=== PATIENT | female | born 1970 | race Caucasian/White ===

== ENCOUNTER 2022-12-30 08:22 | Day surgery (SDC) | payer BC ==
[~2022-12-30] VITALS: Ht 167.6 cm; Wt 92.9 kg
[~2022-12-30 08:22] MED LIST: MIDAZolam 1 MG/ML 5ML VIAL ONE; fentaNYL/PF 50MCG/1 ML 2ML syringe ONE
[2022-12-30] MEDS ORDERED: UBID300C3 PO (09:36)
[2022-12-30] MEDS ORDERED: NO HOME MEDS (09:53)
[2022-12-30 10:30] VITALS: BP 131/84
[2022-12-30 10:40] VITALS: BP 102/63
[2022-12-30 10:50] VITALS: BP 103/64
[2022-12-30 10:59] VITALS: BP 131/84
[2022-12-30 11:00] VITALS: BP 103/64
== END 2022-12-30 11:15 | disposition home or self-care (01) ==
LOC: GI LAB 08:22
PROVIDERS: ATTEND Specialist
DX: Z12.11 Encounter for screening for malignant neoplasm of colon (principal); K63.5 Polyp of colon; K57.30 Diverticulosis of large intestine without perforation or abscess without bleeding; K64.8 Other hemorrhoids; Z86.010 Personal history of colon polyps; Z72.89 Other problems related to lifestyle; Z83.71 Family history of colonic polyps
CPT/HCPCS: 45380; 99152; 99153; J2250; J3010; J7030; Z7512; A4620